=== PATIENT | male | born 1980 | race Hispanic/Latino ===

== ENCOUNTER 2021-05-05 13:09 | Outpatient (CLI) | payer BC | END 2021-05-05 13:10 | disposition home or self-care (01) | LOC: TBSIIMAG 13:09 | PROVIDERS: ATTEND Neurological Surgery | DX: M47.26 Other spondylosis with radiculopathy, lumbar region (principal); M47.817 Spondylosis without myelopathy or radiculopathy, lumbosacral region | CPT/HCPCS: 72110; 72148 ==